=== PATIENT | female | born 1945 | race Caucasian/White ===

== ENCOUNTER → 2024-02-02 09:04 | Outpatient (REF) | payer MEDICARE, OTHER, SELFPAY | LOC: HWRCS 09:04 | PROVIDERS: ATTENDING PHYSICIAN Internal Medicine; FAMILY PHYSICIAN Family Medicine Sports Medicine | DX: Z01.810 Encounter for preprocedural cardiovascular examination (principal); I48.21 Permanent atrial fibrillation; R06.09 Other forms of dyspnea; I10 Essential (primary) hypertension | CPT/HCPCS: 93306 ==